=== PATIENT | female | born 1940 | race Caucasian/White ===

== ENCOUNTER → 2021-10-22 | Outpatient (CLI) | payer BC, MEDICARE ==
[~2021-10-22] MED LIST: SODIUM CHLORIDE 0.9% 50 ML IVPB NR; SODIUM CHLORIDE 0.9% 500 ML 500 ML in EMPTY BAG 1 BAG IV PRN; SOTROVIMAB (EUA) 500 MG in SODIUM CHLORIDE 0.9% 100 ML IVPB NR
[2021-10-22 14:02] VITALS: RESP 16; TEMP 97.9
[2021-10-22 15:05] VITALS: BP 132/86; PULSE 69
== END ==
LOC: PROCWHC3 13:06
PROVIDERS: ATTEND Internal Medicine
DX: U07.1 COVID-19 (principal)
CPT/HCPCS: 96360; Q0247; M0247